=== PATIENT | male | born 1940 | race Caucasian/White ===

== ENCOUNTER 2018-05-07 21:37 | Emergency (ER) | payer MEDICARE, BC ==
[~2018-05-07] VITALS: Ht 167.6 cm; Wt 88.0 kg
[2018-05-07 21:40] VITALS: BP 133/67
[2018-05-07] MEDS ORDERED: LIDOCAINE HCL/PF 2 % 5ML SDV 5 ML VIAL ONE (22:30)
[2018-05-07] MEDS ORDERED: LIDOCAINE HCL/PF 1% 30 ML VIAL TP ONE (22:30)
--- NOTE | 2018-05-07 22:39 | NUR ---
2% LIDO AT THE BEDSIDE FOR LIYA BENAVIDES LAC TRAY AND SET UP AT BEDSIDE.
--- NOTE | 2018-05-07 23:01 | NUR ---
PT SUTURED BY SHAISTA PRAJAPATI.
--- NOTE | 2018-05-07 23:20 | NUR ---
PT WAS DISCHARGED BY JORGE MALIK .
--- NOTE | 2018-05-08 | NUR ---
PT'S STARTED BLEEDING AGAIN AND RAO BENAVIDES RESUTURED THE LAC. 1% LIDO WITH EPI LEFT AT THE BEDSIDE FOR SUTURING ALONG WITH LAC TRAY AND 4.0 ETHELON.
[2018-05-08] MEDS ORDERED: LIDOCAINE 1%-EPI 1:100,000 20 ML VIAL ONE (00:14)
--- NOTE | 2018-05-08 00:25 | NUR ---
FOSTER, PAC IS AT THE BEDSIDE FOR SUTURING.
[2018-05-08] MEDS ORDERED: LIDOCAINE 2%-EPI 1:100,000 30 ML VIAL TP ONE (00:30)
[2018-05-08] MEDS ORDERED: ACETAMINOPHEN 325 MG TABLET ONE (00:39)
[2018-05-08] MEDS ORDERED: ACETAMINOPHEN 325 MG TABLET PO ONE (01:00)
== END 2018-05-07 23:10 | disposition home or self-care (01) ==
LOC: ER 21:39
DX: S61.412A Laceration without foreign body of left hand, initial encounter (principal); I10 Essential (primary) hypertension; Z87.442 Personal history of urinary calculi; Z98.890 Other specified postprocedural states; W54.0XXA Bitten by dog, initial encounter; Y93.89 Activity, other specified; Y92.89 Other specified places as the place of occurrence of the external cause; Y99.8 Other external cause status
CPT/HCPCS: A4606; A6402; J3490; Z7610

== ENCOUNTER 2024-08-15 01:17 | Emergency (ER) | payer BC, MEDICARE ==
[~2024-08-15] VITALS: Ht 165.1 cm; Wt 87.1 kg
[2024-08-15 01:34] VITALS: BP 125/73; TEMP 97.8; O2SAT 95
[2024-08-15] MEDS ORDERED: LIDOCAINE 1%-EPI 1:100,000 20 ML VIAL ONE (01:50)
[2024-08-15] MEDS ORDERED: TDAP [DIPH/PERTUSSIS/TET] 0.5 ML VIAL IM ONE (01:51)
[2024-08-15] MEDS: TDAP [DIPH/PERTUSSIS/TET] 0.5 ML VIAL IM ONE (01:55)
== END 2024-08-15 03:19 | disposition home or self-care (01) ==
LOC: ER 01:17
DX: S81.812A Laceration without foreign body, left lower leg, initial encounter (principal); I10 Essential (primary) hypertension; I48.91 Unspecified atrial fibrillation; M10.9 Gout, unspecified; Z87.442 Personal history of urinary calculi; W22.8XXA Striking against or struck by other objects, initial encounter; Y93.89 Activity, other specified; Y92.098 Other place in other non-institutional residence as the place of occurrence of the external cause; Y99.8 Other external cause status
CPT/HCPCS: 12002; 90471; 90715; 99283; J3490

== ENCOUNTER 2024-08-24 20:22 | Emergency (ER) | payer BC ==
[~2024-08-24] VITALS: Ht 165.1 cm; Wt 86.2 kg
[2024-08-24 21:13] VITALS: BP 135/78; TEMP 97.8
[2024-08-24 21:30] VITALS: O2SAT 97
== END 2024-08-24 21:55 | disposition home or self-care (01) ==
LOC: ER 20:24
DX: S81.812D Laceration without foreign body, left lower leg, subsequent encounter (principal); I10 Essential (primary) hypertension; I48.91 Unspecified atrial fibrillation; Z48.00 Encounter for change or removal of nonsurgical wound dressing; Z87.442 Personal history of urinary calculi; X58.XXXD Exposure to other specified factors, subsequent encounter

== ENCOUNTER 2024-08-30 21:39 | Emergency (ER) | payer BC ==
[~2024-08-30] VITALS: Ht 172.7 cm; Wt 79.4 kg
[2024-08-30 22:36] VITALS: BP 125/79; TEMP 98.2
[2024-08-31] VITALS: O2SAT 99
== END 2024-08-31 | disposition home or self-care (01) ==
LOC: ER 21:44
DX: S81.812D Laceration without foreign body, left lower leg, subsequent encounter (principal); I10 Essential (primary) hypertension; I48.91 Unspecified atrial fibrillation; M10.9 Gout, unspecified; Z48.00 Encounter for change or removal of nonsurgical wound dressing; Z87.442 Personal history of urinary calculi; X58.XXXD Exposure to other specified factors, subsequent encounter